=== PATIENT | male | born 1960 | race Asian ===

== ENCOUNTER 2017-12-09 10:21 | Emergency (ER) | payer MEDICAID ==
[~2017-12-09] VITALS: Ht 170.2 cm; Wt 81.6 kg
[2017-12-09 10:38] VITALS: BP 107/82
== END 2017-12-09 12:19 | disposition home or self-care (01) ==
LOC: ER 10:23
DX: J32.9 Chronic sinusitis, unspecified (principal)
CPT/HCPCS: 99283; A4606; Z7610